=== PATIENT | male | born 1945 | race Caucasian/White ===

== ENCOUNTER 2022-01-13 23:56 | Observation (INO) | payer MEDICARE, OTHER ==
--- NOTE | 2022-01-14 00:49 | ED ---
Anxiety HPI - General Chief Complaint: Anxiety Stated Complaint: Anxiety Time Seen by Provider: 01/14/22 00:21 Source: patient, family, RN notes reviewed, old records reviewed Mode of arrival: wheelchair Limitations: altered mental status - History of Present Illness Initial Comments: This is a 77-year-old male DF for evaluation. Patient is having significant difficulty sleeping secondary to increased anxiety and stress in his life but also feels like his heart is racing pain is having some nauseousness and weakness. Patient states is going on for sometime which I was worse than normal he has gotten multiple times recently cold her hospital as recommended but today couldn't stay home. Patient has history of high blood pressure MD Complaint: anxiety, heart racing, shortness of breath -: hour(s) Symptoms: dyspnea, chest pain, palpitations Place: home Previous History of Same: Yes Severity: moderate Quality: worsening Provoking factors: emotional stress Worsens With: nothing Associated symptoms: chest pain, palpitations, diaphoresis, anorexia, weakness - Related Data Home Medications: Home Medications Medication Instructions Recorded Confirmed Ciprofloxacin HCl 500 mg PO BID 01/14/22 01/14/22 HYDROcodone/APAP 10-325MG [[place] 1 tab PO Q6H PRN 01/14/22 01/14/22 10-325] Levothyroxine Sodium 200 mcg PO DAILY 01/14/22 01/14/22 Prochlorperazine [Compazine] 10 mg PO Q8H PRN 01/14/22 01/14/22 buPROPion XL [Wellbutrin XL] 300 mg PO DAILY 01/14/22 01/14/22 fentaNYL 50MCG/HR PATCH [Duragesic 50 mcg TRANSDERM Q72H 01/14/22 01/14/22 50MCG/HR] lisinopriL 40 mg PO HS 01/14/22 01/14/22 Previous Rx's Medication Instructions Recorded LORazepam [Ativan] 0.5 mg PO TID PRN #15 tab 01/14/22 Allergies/Adverse Reactions: Allergies Allergy/AdvReac Type Severity Reaction Status Date / Time adhesive Allergy Rash/Hives Verified 01/14/22 08:18 Penicillins Allergy Anaphylaxis Verified 01/14/22 08:18 Review of Systems ROS Statement: Those systems with pertinent positive or pertinent negative responses have been documented in the HPI. ROS Other: All systems not noted in ROS Statement are negative. Past Medical History Past Medical History: Hypertension, Thyroid Disorder Additional Past Medical History / Comment(s): hereditary spastic paraparesis, History of Any Multi-Drug Resistant Organisms: C-DIFF Date of last positivie culture/infection: january 2021 Past Surgical History: Appendectomy Additional Past Surgical History / Comment(s): hernia repair Smoking Status: Former smoker Past Alcohol Use History: Occasional Past Drug Use History: None Reported - Past Family History Father Family Medical History: Cancer General Exam General appearance: alert, in no apparent distress, anxious Head exam: Present: atraumatic, normocephalic, normal inspection Eye exam: Present: normal appearance, PERRL, EOMI. Absent: scleral icterus, conjunctival injection, periorbital swelling ENT exam: Present: normal exam, mucous membranes moist Neck exam: Present: normal inspection. Absent: tenderness, meningismus, lymphadenopathy Respiratory exam: Present: normal lung sounds bilaterally. Absent: respiratory distress, wheezes, rales, rhonchi, stridor Cardiovascular Exam: Present: normal rhythm, tachycardia, normal heart sounds. Absent: systolic murmur, diastolic murmur, rubs, gallop, clicks GI/Abdominal exam: Present: soft, normal bowel sounds. Absent: distended, tenderness, guarding, rebound, rigid Extremities exam: Present: normal inspection, full ROM, normal capillary refill. Absent: tenderness, pedal edema, joint swelling, calf tenderness Back exam: Present: normal inspection Neurological exam: Present: alert, oriented X3, CN II-XII intact Psychiatric exam: Present: normal affect, normal mood Skin exam: Present: warm, dry, intact, normal color. Absent: rash Course Vital Signs 01/14/22 01/14/22 01/14/22 00:05 01:51 03:29 Temperature 97.5 F L Pulse Rate 118 H 101 H 95 Respiratory 24 18 16 Rate Blood Pressure 142/67 120/88 148/87 O2 Sat by Pulse 96 97 97 Oximetry - Reevaluation(s) Reevaluation #1: 01/14/22 Medical record is reviewed Reevaluation #2: 01/14/22 Patient is informed of results and questions answered Reevaluation #3: 01/14/22 Patient is overall no significant improvement here in the urine will be admitted for cardiology to evaluate - Consultations Consultation #1: Spoke with admitting physicians will admit this patient Medical Decision Making - Medical Decision Making 77 male to the emergency department for evaluation patient is H a fibrillation w ith RVR with his new onset chest pain weakness. Patient be admitted for cardiology to see and evaluate - Lab Data Result diagrams: 01/14/22 01:46 01/14/22 08:50 Lab Results 01/14/22 01/14/22 01/14/22 Range/Units 01:46 01:46 01:46 WBC 9.4 (3.8-10.6) k/uL RBC 4.88 (4.30-5.90) m/uL Hgb 14.6 (13.0-17.5) gm/dL Hct 44.6 (39.0-53.0) % MCV 91.3 (80.0-100.0) fL MCH 30.0 (25.0-35.0) pg MCHC 32.8 (31.0-37.0) g/dL RDW 12.6 (11.5-15.5) % Plt Count 394 (150-450) k/uL MPV 7.2 Neutrophils % 73 % Lymphocytes % 16 % Monocytes % 5 % Eosinophils % 3 % Basophils % 2 % Neutrophils # 6.9 (1.3-7.7) k/uL Lymphocytes # 1.5 (1.0-4.8) k/uL Monocytes # 0.5 (0-1.0) k/uL Eosinophils # 0.3 (0-0.7) k/uL Basophils # 0.1 (0-0.2) k/uL PT 10.4 (9.0-12.0) sec INR 0.9 (<1.2) APTT 29.4 (22.0-30.0) sec Sodium 135 L (137-145) mmol/L Potassium 4.5 (3.5-5.1) mmol/L Chloride 99 (98-107) mmol/L Carbon Dioxide 26 (22-30) mmol/L Anion Gap 10 mmol/L BUN 19 (9-20) mg/dL Creatinine 1.50 H (0.66-1.25) mg/dL Est GFR (CKD-EPI)AfAm 52 (>60 ml/min/1.73 sqM) Est GFR (CKD-EPI)NonAf 45 (>60 ml/min/1.73 sqM) Glucose 115 H (74-99) mg/dL Calcium 8.9 (8.4-10.2) mg/dL Phosphorus 2.5 (2.5-4.5) mg/dL Magnesium 2.2 (1.6-2.3) mg/dL Total Bilirubin 0.4 (0.2-1.3) mg/dL AST 26 (17-59) U/L ALT 14 (4-49) U/L Alkaline Phosphatase 117 (38-126) U/L Troponin I (0.000-0.034) ng/mL Total Protein 6.8 (6.3-8.2) g/dL Albumin 3.8 (3.5-5.0) g/dL TSH 11.800 H (0.465-4.680) mIU/L Free T4 (0.78-2.19) ng/dL 01/14/22 01/14/22 Range/Units 01:46 01:46 WBC (3.8-10.6) k/uL RBC (4.30-5.90) m/uL Hgb (13.0-17.5) gm/dL Hct (39.0-53.0) % MCV (80.0-100.0) fL MCH (25.0-35.0) pg MCHC (31.0-37.0) g/dL RDW (11.5-15.5) % Plt Count (150-450) k/uL MPV Neutrophils % % Lymphocytes % % Monocytes % % Eosinophils % % Basophils % % Neutrophils # (1.3-7.7) k/uL Lymphocytes # (1.0-4.8) k/uL Monocytes # (0-1.0) k/uL Eosinophils # (0-0.7) k/uL Basophils # (0-0.2) k/uL PT (9.0-12.0) sec INR (<1.2) APTT (22.0-30.0) sec Sodium (137-145) mmol/L Potassium (3.5-5.1) mmol/L Chloride (98-107) mmol/L Carbon Dioxide (22-30) mmol/L Anion Gap mmol/L BUN (9-20) mg/dL Creatinine (0.66-1.25) mg/dL Est GFR (CKD-EPI)AfAm (>60 ml/min/1.73 sqM) Est GFR (CKD-EPI)NonAf (>60 ml/min/1.73 sqM) Glucose (74-99) mg/dL Calcium (8.4-10.2) mg/dL Phosphorus (2.5-4.5) mg/dL Magnesium (1.6-2.3) mg/dL Total Bilirubin (0.2-1.3) mg/dL AST (17-59) U/L ALT (4-49) U/L Alkaline Phosphatase (38-126) U/L Troponin I <0.012 (0.000-0.034) ng/mL Total Protein (6.3-8.2) g/dL Albumin (3.5-5.0) g/dL TSH (0.465-4.680) mIU/L Free T4 1.59 (0.78-2.19) ng/dL - EKG Data -: EKG Interpreted by Me (EKG sinus tachycardia 120 NJ 124 QRS 97 QTC 401) - Radiology Data Radiology results: report reviewed (Chest x-rays negative for acute disease), image reviewed Critical Care Time Critical Care Time: Yes Total Critical Care Time: 31 Disposition Clinical Impression: Acute anxiety, New onset atrial fibrillation, Panic attack, Atrial fibrillation with RVR, Tachycardia Disposition: ADMITTED IP TO THIS HOSP Condition: Fair Is patient prescribed a controlled substance at d/c from ED?: No Time of Disposition: 03:15
[2022-01-14] MEDS ORDERED: LORazepam 2 MG/ML INJ IV STA (01:35)
[2022-01-14] MEDS ORDERED: DILTIAZEM DRIP BOLUS FROM BAG 1 MG SOLN IV ONE (01:35)
[2022-01-14] MEDS ORDERED: SODIUM CHLORIDE 0.9% 1,000 ML IV STA (01:35)
[2022-01-14] MEDS ORDERED: DILTIAZEM 125 MG in SODIUM CHLORIDE 0.9% 100 ML IV SCH (01:45)
[2022-01-14 02:16] LABS: Basophils # (A) 0.1 k/uL (0-0.2); Basophils % (A) 2 %; Eosinophils # (A) 0.3 k/uL (0-0.7); Eosinophils % (A) 3 %; HCT 44.6 % (39.0-53.0); HGB 14.6 gm/dL (13.0-17.5); Lymphocytes # (A) 1.5 k/uL (1.0-4.8); Lymphocytes % (A) 16 %; MCHC 32.8 g/dL (31.0-37.0); MCV 91.3 fL (80.0-100.0); Mean Platelet Volume 7.2; Monocytes # (A) 0.5 k/uL (0-1.0); Monocytes % (A) 5 %; Neutrophils # (A) 6.9 k/uL (1.3-7.7); Neutrophils % (A) 73 %; Platelet Count 394 k/uL (150-450); RBC 4.88 m/uL (4.30-5.90); RDW 12.6 % (11.5-15.5); WBC 9.4 k/uL (3.8-10.6)
[2022-01-14 02:21] LABS: INR 0.9 (<1.2); Partial Thromboplastin Time 29.4 sec (22.0-30.0); Prothrombin Time 10.4 sec (9.0-12.0)
[2022-01-14 02:28] LABS: Albumin 3.8 g/dL (3.5-5.0); Calcium 8.9 mg/dL (8.4-10.2); Magnesium 2.2 mg/dL (1.6-2.3); Phosphorus 2.5 mg/dL (2.5-4.5); Potassium 4.5 mmol/L (3.5-5.1); Total Bilirubin 0.4 mg/dL (0.2-1.3); Total Protein 6.8 g/dL (6.3-8.2)
[2022-01-14] MEDS ORDERED: LORazepam 2 MG/ML INJ IV PRN (03:15)
[2022-01-14] MEDS ORDERED: ASPIRIN 325 MG TAB PO STA (03:15)
[2022-01-14] MEDS: SODIUM CHLORIDE 0.9% 1,000 ML IV SCH ×2 (03:31→13:21)
--- NOTE | 2022-01-14 04:36 | XR ---
EXAM: XR Chest, 1 View CLINICAL HISTORY: ITS.REASON XR Reason: sob TECHNIQUE: Frontal view of the chest. COMPARISON: No relevant prior studies available. FINDINGS: Lungs: Moderate to heavy peribronchial thickening about the central and right lower lobe bronchi with increased interstitial opacities in the perihilar parenchyma. Elevated left hemidiaphragm Limited evaluation of the left lung base. No consolidation. Pleural space: Unremarkable. No pneumothorax. Heart: Unremarkable. No cardiomegaly. Mediastinum: Unremarkable. Bones/joints: Unremarkable. IMPRESSION: Findings concerning for bronchitis with perihilar pneumonitis. No evidence of consolidation.
--- NOTE | 2022-01-14 05:52 | P.HPIM ---
History of Present Illness H&P Date: 01/14/22 The patient is a 77-year-old male with a PMH of hereditary spastic paralysis, hypertension and hypothyroidism who presented to the emergency room with complaints of palpitations. Patient reports that his symptoms started roughly 4-5 days ago, with a feeling of anxiety with palpitations. Denied experiencing chest discomfort, nausea, vomiting, diaphoresis. Also denied cough, fever, chills, abdominal pain, diarrhea. Denied any prior history of heart disease or arrhythmias. EKG in the emergency room revealed sinus tachycardia at 120 bpm. The patient was then noted on the heart monitor to be in A. fib persistently. Laboratory evaluation was remarkable for TSH 11.00, and creatinine 1.50. Review of systems: Pertinent positives and negatives as discussed in HPI, a complete review of systems was performed and all other systems are negative. Physical examination: General: non toxic, no distress, appears at stated age, obese Derm: no unusual rashes/lesions, warm Head: atraumatic, normocephalic, symmetric Eyes: EOMI, no lid lag, anicteric sclera, pupils equal round reactive to light ENT: Nose and ears atraumatic Neck: No cervical lymphadenopathy, trachea midline, supple Mouth: no lip lesion, mucus membranes moist Cardiovascular: Tachycardic, irregularly irregular, no murmur, positive dorsalis pedis pulse bilateral, no edema Lungs: CTA bilateral, no rhonchi, no rales, no accessory muscle use Abdominal: soft, nontender to palpation, no guarding Ext: muscle strength 3+ out of 5 in all 4 extremities grossly, no gross muscle atrophy, no contractures, Neuro: CN II-XI grossly intact, no gross focal neuro deficits Psych: Alert, oriented, appropriate affect Assessment/plan A. fib with RVR, newly diagnosed -Continue Cardizem infusion -Cardiology consult -Cardiac monitoring -Defer initiation of anticoagulation to cardiology -Obtain echocardiogram Kidney injury, acute versus chronic -Gentle IV fluids -Monitor BMP Chronic conditions: Hypertension, hypothyroidism, hereditary spastic paralysis -Continue with home meds DVT prophylaxis -Heparin subcu The patient is admitted with an anticipated greater than 2 midnight stay for evaluation of afib CODE STATUS: Full Code Discussed with: Patient Anticipated discharge date: 01/[address]: Home Past Medical History Past Medical History: Hypertension, Thyroid Disorder Additional Past Medical History / Comment(s): hereditary spastic paraparesis, History of Any Multi-Drug Resistant Organisms: C-DIFF Date of last positivie culture/infection: january 2021 MDRO Source:: stool Past Surgical History: Appendectomy Additional Past Surgical History / Comment(s): hernia repair Smoking Status: Former smoker Past Alcohol Use History: Occasional Past Drug Use History: None Reported - Past Family History Father Family Medical History: Cancer Medications and Allergies Allergies Allergy/AdvReac Type Severity Reaction Status Date / Time adhesive Allergy Rash/Hives Verified 01/14/22 00:16 Penicillins Allergy Anaphylaxis Verified 01/14/22 00:16 Physical Exam Vitals: Vital Signs Temp Pulse Resp BP Pulse Ox 01/14/22 03:29 95 16 148/87 97 01/14/22 01:51 101 H 18 120/88 97 01/14/22 00:05 97.5 F L 118 H 24 142/67 96 Intake and Output 01/13/22 01/13/22 01/14/22 14:59 22:59 06:59 Other: Weight 108.862 kg Results CBC & Chem 7: 01/14/22 01:46 01/14/22 01:46 Labs: Abnormal Lab Results - Last 24 Hours (Table) 01/14/22 Range/Units 01:46 Sodium 135 L (137-145) mmol/L Creatinine 1.50 H (0.66-1.25) mg/dL Glucose 115 H (74-99) mg/dL TSH 11.800 H (0.465-4.680) mIU/L Thrombosis Risk Factor Assmnt - Choose All That Apply Each Factor Represents 1 point: Obesity (BMI >25) Each Risk Factor Represents 3 Points: Age 75 years or older Thrombosis Risk Factor Assessment Total Risk Factor Score: 4 Thrombosis Risk Factor Assessment Level: Moderate Risk
[2022-01-14 06:04] VITALS: RESP 20
[2022-01-14] MEDS ORDERED: LORazepam 1 MG/0.5 ML VIAL IV PRN (07:24)
[2022-01-14] MEDS ORDERED: METOPROLOL TARTRATE 25 MG TAB PO SCH (09:00)
[2022-01-14 09:46] LABS: Calcium 8.7 mg/dL (8.4-10.2); Potassium 4.3 mmol/L (3.5-5.1)
[2022-01-14 10:24] VITALS: TEMP 98
[2022-01-14] MEDS ORDERED: LORazepam 0.5 MG TAB PO ONE (11:10)
--- NOTE | 2022-01-14 11:28 | CA ---
Transthoracic Echo Report Name: Randy Bui Age: 77 Gender: M : 1945 Exam Date: 01/14/2022 08:21 Exam Location: [facility] Ht (in): 68 Wt (lb): 240 Ordering Physician: Henry Castellanos DO Attending/Referring Phys: [id number], Jasmin Metaphysician Mireille Sheffield, KYLIE Procedure CPT: Indications: NewAfib Cardiac Hx: Technical Quality: Very technically difficult study Contrast 1: Total Dose (mL): Contrast 2: Total Dose (mL): MEASUREMENTS (Male / Female) Normal Values FINDINGS Left Ventricle Normal left ventricular systolic function with no obvious regional wall motion abnormalities. Right Ventricle Right ventricle not well visualized. Right Atrium Right atrium not well visualized. Left Atrium Left atrium not well visualized. Mitral Valve Mitral valve not well visualized. Aortic Valve Aortic valve not well visualized. Tricuspid Valve Tricuspid valve not well visualized. Pulmonic Valve Pulmonic valve not well visualized. Pericardium Aorta Aortic root and proximal ascending aorta not well visualized. CONCLUSIONS Low normal left ventricular systolic function was EF of 50% Previewed by: Dr. Lorenzo Magana MD (Electronically Signed) Final Date: 14 January 2022 11:27
--- NOTE | 2022-01-14 11:32 | P.CRDCN ---
History of Present Illness History of present illness: HISTORY OF PRESENTING ILLNESS This is a pleasant 77-year-old male past medical history significant for hypertension, hereditary spastic paraparesis, chronic osteoarthritis on fentanyl patch,indwelling catheter on Cipro prophylaxtic, hypertension and hypothyroidism . He does not follow with a chainman. We have been asked to see in consultation for atrial fibrillation. Patient presents to the ER with worsening anxiety. Patient reports that his symptoms started roughly 4 days ago, with a feeling of anxiety. Yesterday had acute onset symptoms where he did not feel his normal self, increased anxiety, not sleeping, felt on edge. He denies any chest pain, shortness of breath, lightheadedness, dizziness, syncope or near syncope. No recent changes to medications. No CAD, [place], stroke or diabetes history. He symptoms of somewhat resolved. In the ER there is questionable atrial fibrillation. EKG revealed sinus tachycardia with PACs. Telemetry reveals the same. Patient was given 1 L IV bolus, metoprolol titrate 25 mg and IV Ativan with some improvement in symptoms. DIAGNOSTICS EKG reveals sinus tachycardia with occasional PACs. Heart rate 120 Telemetry tracings indicate sinus mechanism with occasional PACs Chest xray moderate heavy peribronchial thickening about the central and right lower lobe bronchi. Increased interstitial opacity in the perihilar parenchyma Laboratory reviewed, CBC unremarkable, troponin negative 3, sodium 138, potassium 4.3, BUN 16, serum creatinine 1.3, magnesium 2.2 Current home medications include lisinopril 40 mg nightly, Synthroid, Compazine, [place], fentanyl patch, Wellbutrin Echocardiogram revealed an EF 50%, valves not visualized well. REVIEW OF SYSTEMS At the time of my exam: CONSTITUTIONAL: Denies fever or chills. CARDIOVASCULAR: Denies chest pain, shortness of breath, orthopnea, PND or palpitations. RESPIRATORY: Denies cough. GASTROINTESTINAL: Denies abdominal pain, diarrhea, constipation, nausea or vomiting. MUSCULOSKELETAL: Denies myalgias. NEUROLOGIC: Denies numbness, tingling, headacbe or weakness. ENDOCRINE: Denies fatigue, weight change, polydipsia or polyurina. GENITOURINARY: Denies burning, hematuria or urgency with micturation. HEMATOLOGIC: Denies history of anemia or bleeding. PHYSICAL EXAMINATION Blood pressure 144/69, heart rate 95, afebrile, saturation 97% on room air CONSTITUTIONAL: No apparent distress. HEENT: Head is normocephalic. Pupils are equal, round. Sclerae anicteric. Mucous membranes of the mouth are moist. No JVD. No carotid bruit. CHEST EXAMINATION: Lungs are clear to auscultation. No chest wall tenderness is noted on palpation or with deep breathing. HEART EXAMINATION: Regular rate and rhythm. S1, S2 heard. No murmurs, gallops or rub. ABDOMEN: Soft, nontender. Positive bowel sounds. EXTREMITIES: 2+ peripheral pulses, no lower extremity edema and no calf tenderness. NEUROLOGIC EXAMINATION: Patient is awake, alert and oriented x3. ASSESSMENT Sinus rhythm and tachycardia with premature atrial complexes, no evidence of atrial fibrillation Anxiety History of hypertension Hereditary spastic paraparesis Chronic osteoarthritis on fentanyl patch Indwelling catheter on Cipro prophylaxtic PLAN No atrial fibrillation noted on EKG or telemetry Echocardiogram revealed EF 50% No further inpatient workup from a cardiology perspective. Nurse practitioner note has been reviewed by physician. Signing provider agrees with the documented findings, assessment, and plan of care. Past Medical History Past Medical History: Hypertension, Thyroid Disorder Additional Past Medical History / Comment(s): hereditary spastic paraparesis, History of Any Multi-Drug Resistant Organisms: C-DIFF Date of last positivie culture/infection: january 2021 MDRO Source:: stool Past Surgical History: Appendectomy Additional Past Surgical History / Comment(s): hernia repair Smoking Status: Former smoker Past Alcohol Use History: Occasional Past Drug Use History: None Reported - Past Family History Father Family Medical History: Cancer Medications and Allergies Home Medications Medication Instructions Recorded Confirmed Type Ciprofloxacin HCl 500 mg PO BID 01/14/22 01/14/22 History HYDROcodone/APAP 10-325MG [[place] 1 tab PO Q6H PRN 01/14/22 01/14/22 History 10-325] LORazepam [Ativan] 0.5 mg PO TID PRN #15 tab 01/14/22 Rx Levothyroxine Sodium 200 mcg PO DAILY 01/14/22 01/14/22 History Prochlorperazine [Compazine] 10 mg PO Q8H PRN 01/14/22 01/14/22 History buPROPion XL [Wellbutrin XL] 300 mg PO DAILY 01/14/22 01/14/22 History fentaNYL 50MCG/HR PATCH [Duragesic 50 mcg TRANSDERM Q72H 01/14/22 01/14/22 History 50MCG/HR] lisinopriL 40 mg PO HS 01/14/22 01/14/22 History Allergies Allergy/AdvReac Type Severity Reaction Status Date / Time adhesive Allergy Rash/Hives Verified 01/14/22 08:18 Penicillins Allergy Anaphylaxis Verified 01/14/22 08:18 Physical Exam Vitals: Vital Signs Temp Pulse Pulse Resp BP BP Pulse Ox 01/14/22 04:45 97.9 F 102 H 20 162/91 97 01/14/22 03:29 95 16 148/87 97 01/14/22 01:51 101 H 18 120/88 97 01/14/22 00:05 97.5 F L 118 H 24 142/67 96 Intake and Output 01/13/22 01/14/22 01/14/22 22:59 06:59 14:59 Output Total 300 Balance -300 Output: Urine 300 Other: Voiding Method Indwelling Catheter Weight 108.862 kg Results 01/14/22 01:46 01/14/22 08:50 Cardiac Enzymes 01/14/22 01/14/22 01/14/22 Range/Units 01:46 01:46 05:47 AST 26 (17-59) U/L Troponin I <0.012 <0.012 (0.000-0.034) ng/mL Coagulation 01/14/22 Range/Units 01:46 PT 10.4 (9.0-12.0) sec APTT 29.4 (22.0-30.0) sec CBC 01/14/22 Range/Units 01:46 WBC 9.4 (3.8-10.6) k/uL RBC 4.88 (4.30-5.90) m/uL Hgb 14.6 (13.0-17.5) gm/dL Hct 44.6 (39.0-53.0) % Plt Count 394 (150-450) k/uL Comprehensive Metabolic Panel 01/14/22 Range/Units 01:46 Sodium 135 L (137-145) mmol/L Potassium 4.5 (3.5-5.1) mmol/L Chloride 99 (98-107) mmol/L Carbon Dioxide 26 (22-30) mmol/L BUN 19 (9-20) mg/dL Creatinine 1.50 H (0.66-1.25) mg/dL Glucose 115 H (74-99) mg/dL Calcium 8.9 (8.4-10.2) mg/dL AST 26 (17-59) U/L ALT 14 (4-49) U/L Alkaline Phosphatase 117 (38-126) U/L Total Protein 6.8 (6.3-8.2) g/dL Albumin 3.8 (3.5-5.0) g/dL Current Medications Generic Name Dose Route Start Last Admin Trade Name Freq PRN Reason Stop Dose Admin Aspirin 325 mg 01/15/22 09:00 Aspirin 325 Mg Tab PO DAILY KOTA Diltiazem HCl 125 mg/ Sodium 125 mls @ 5 mls/hr 01/14/22 01:45 01/14/22 03:30 Chloride IV Not Given .Q24H KOTA 5 MG/HR Sodium Chloride 1,000 mls @ 100 mls/hr 01/14/22 03:15 01/14/22 03:31 Saline 0.9% IV 100 mls/hr .Q10H KOTA Administration Lorazepam 0.5 mg 01/14/22 07:24 Lorazepam 1 Mg/0.5 Ml Vial IV Q6HR PRN Anxiety Metoprolol Tartrate 25 mg 01/14/22 09:00 Metoprolol Tartrate 25 Mg Tab PO BID KOTA Intake and Output 01/13/22 01/14/22 01/14/22 22:59 06:59 14:59 Output Total 300 Balance -300 Output: Urine 300 Other: Voiding Method Indwelling Catheter Weight 108.862 kg 01/14/22 01:46 01/14/22 01:46
[2022-01-14 11:37] VITALS: BP 139/89; PULSE 84
--- NOTE | 2022-01-14 16:17 | P.DS ---
Providers Date of admission: 01/14/22 03:15 Expected date of discharge: 01/14/22 Attending physician: Cristina Davies MD Consults: 01/14/22 03:15 Consult Physician Routine Consulting Provider: Hellen Jospeh Consult Reason/Comments: afib Do you want consulting provider notified?: Yes Primary care physician: Physician Nonstaff Hospital Course: Discharge Diagnosis: Sinsu tachycardia Acute situational anxiety CKD HTN Hypothyroidism- TSH 11.9 Hospital Course: The patient is a 77-year-old male with hereditary spastic paralysis, hypertension and hypothyroidism who presented to the emergency room with complaints of palpitations. EKG in the emergency room revealed sinus tachycardia at 120 bpm. T Laboratory evaluation was remarkable for TSH 11.00, and creatinine 1.50. He as admitted due to concerns of A fib on the monitor. Cardizem was ordered but never given due to decreased pulse. He was started on a heparin gtt. He was seen by cardio who confirmed sinus rhythm. Echo showed EF ofr 50 %. It was discoved that patient had increased anxiety likely situational. He reports that last year at this time he had a significant illness requiring hospitalization for ruptured appendix. He now realizes he never fully processed this. We gave him a dose of Ativan which helped significantly. I discussed with the patient that I'll send him home with a small prescription for Ativan. We discussed that this is not a good long-term solution as it can be addictive and he is on several different pain medications. He agrees to follow with his primary care physician Dr. Burns next week to determine a more permanent solution. We DISCUSSED the importance of combining this with the behavioral therapy modifications and he agrees that he will find a therapist. He does live in the [place] area. He will find a therapist closer to home. Patient seen and examined at bedside. Feeling anxious and upset, recurrants that events of his previous hospital say and realize how anxious this trip has been making him. Vital signs reviewed and stable. General: nontoxic, no distress, appears at stated age Derm: warm, dry Head: atraumatic, normocephalic, symmetric Eyes: EOMI, no lid lag, anicteric sclera Mouth: no lip lesion, mucus membranes moist Cardiovascular: S1S2 reg, no murmur, positive posterior tibial pulse bilateral, Lungs: CTA bilateral, no rhonchi, no rales , no accessory muscle use Abdominal: soft, nontender to palpation, no guarding, no appreciable organomegaly Ext: no gross muscle atrophy, no edema, no contractures Neuro: CN II-XI grossly intact, no focal neuro deficits Psych: Alert, oriented, appropriate affect A total of 25 minutes of time were spent preparing this [facility] Patient was discharged on 01/14/22. Patient Condition at Discharge: Good Plan - Discharge Summary Discharge Rx Participant: No New Discharge Prescriptions: New LORazepam [Ativan] 0.5 mg PO TID PRN #15 tab PRN Reason: Anxiety Continue HYDROcodone/APAP 10-325MG [Hubbard 10-325] 1 tab PO Q6H PRN PRN Reason: Breakthrough Pain lisinopriL 40 mg PO HS Prochlorperazine [Compazine] 10 mg PO Q8H PRN PRN Reason: Nausea Levothyroxine Sodium 200 mcg PO DAILY Ciprofloxacin HCl 500 mg PO BID fentaNYL 50MCG/HR PATCH [Duragesic 50MCG/HR] 50 mcg TRANSDERM Q72H buPROPion XL [Wellbutrin XL] 300 mg PO DAILY Discharge Medication List Ciprofloxacin HCl 500 mg PO BID 01/14/22 [History] HYDROcodone/APAP 10-325MG [Hubbard 10-325] 1 tab PO Q6H PRN 01/14/22 [History] LORazepam [Ativan] 0.5 mg PO TID PRN #15 tab 01/14/22 [Rx] Levothyroxine Sodium 200 mcg PO DAILY 01/14/22 [History] Prochlorperazine [Compazine] 10 mg PO Q8H PRN 01/14/22 [History] buPROPion XL [Wellbutrin XL] 300 mg PO DAILY 01/14/22 [History] fentaNYL 50MCG/HR PATCH [Duragesic 50MCG/HR] 50 mcg TRANSDERM Q72H 01/14/22 [History] lisinopriL 40 mg PO HS 01/14/22 [History] Follow up Appointment(s)/Referral(s): Nonstaff,Physician [Primary Care Provider] - 1-2 days Patient Instructions/Handouts: Generalized Anxiety Disorder (ED) Activity/Diet/Wound Care/Special Instructions: Activity: as tolerated Diet: Regular Special Instructions: Ativan as needed for acute anxiety/panic attacks. Remember this completely, addicting so should be used sparingly. This is only a short-term fix and not a usp solution. Please follow with Dr. Dodson next week to discuss therapy and longer term solution. Your TSH is [address] Dodson regarding this. I have not increased your synthroid as this can lead to palpitation and worsening anxiety. Thank you for trusting us with her care. We wish you well on your journey to better health. Discharge Disposition: HOME SELF-CARE
[2022-01-14] MEDS ORDERED: lisinopriL 20 MG TAB PO SCH (21:00)
[2022-01-15] MEDS ORDERED: ASPIRIN 325 MG TAB PO SCH (09:00)
== END 2022-01-14 14:27 | disposition home or self-care (01) ==
LOC: EC 23:56 → 3SCARD 01-14 03:15 → INTOOBSV 01-14 03:15 → UNDODISIN 01-14 14:27
PROVIDERS: ADMIT Internal Medicine; ATTEND Internal Medicine
DX: R00.0 Tachycardia, unspecified (principal); F41.8 Other specified anxiety disorders; I12.9 Hypertensive chronic kidney disease with stage 1 through stage 4 chronic kidney disease, or unspecified chronic kidney disease; N18.9 Chronic kidney disease, unspecified; G11.4 Hereditary spastic paraplegia; I49.1 Atrial premature depolarization; F41.0 Panic disorder [episodic paroxysmal anxiety]; F43.0 Acute stress reaction; M19.90 Unspecified osteoarthritis, unspecified site; E03.9 Hypothyroidism, unspecified; E66.9 Obesity, unspecified; Z68.36 Body mass index [BMI] 36.0-36.9, adult; Z88.0 Allergy status to penicillin; Z91.048 Other nonmedicinal substance allergy status; Z87.891 Personal history of nicotine dependence; Z90.49 Acquired absence of other specified parts of digestive tract; Z79.890 Hormone replacement therapy; Z79.899 Other long term (current) drug therapy; Z16.39 Resistance to other specified antimicrobial drug; Z98.890 Other specified postprocedural states; Z96.0 Presence of urogenital implants; Z79.891 Long term (current) use of opiate analgesic; Z80.9 Family history of malignant neoplasm, unspecified
CPT/HCPCS: 96361 ×2; 96374; 99285; 36415; 93005; 84439; 80053; 80048; 83735; 84100; 84443; 84484; 85025; 85610; 85730; 71045; G0378; C8929; J2060; Q9950; 93306